=== PATIENT | male | born 1960 | race Caucasian/White ===

== ENCOUNTER 2019-04-29 10:54 | Emergency (ER) | payer BC ==
[2019-04-29] MEDS ORDERED: Diphtheria,Pertussis(Acell),Tetanus Vaccine 0.5 ML SDV IM ONE (11:44)
--- NOTE | 2019-04-29 11:49 | EDM.PDOC ---
ED HPI GENERAL MEDICAL PROBLEM - General Chief Complaint: Laceration Stated Complaint: FISH HOOK Time Seen by Provider: 04/29/19 11:40 Source of Information: Reports: Patient History Limitations: Reports: No Limitations - History of Present Illness INITIAL COMMENTS - FREE TEXT/NARRATIVE: Two ends of treble hook in left hand, patient was fishing, caught a walleye, walleye fell off of hook and hook entered patient's hand. Uncertain last DT. No other injuries. Onset: Today, Sudden - Related Data Allergies Allergy/AdvReac Type Severity Reaction Status Date / Time codeine Allergy Vomiting Verified 04/29/19 11:32 Penicillins Allergy Rash Verified 04/29/19 11:32 Home Meds: Home Meds Lisinopril 04/29/19 [History] atorvaSTATin [Lipitor] 04/29/19 [History] Past Medical History - Past Health History Medical/Surgical History: Denies Medical/Surgical History Social & Family History - Tobacco Use Smoking Status *Q: Never Smoker ED ROS GENERAL - Review of Systems Review Of Systems: ROS reveals no pertinent complaints other than HPI. ED EXAM, SKIN/RASH Exam: See Below Exam Limited By: No Limitations General Appearance: Alert, WD/WN, No Apparent Distress Respiratory/Chest: No Respiratory Distress Cardiovascular: Regular Rate, Rhythm Back Exam: Normal Inspection Extremities: Normal Inspection Neurological: Alert, Oriented, CN II-XII Intact Psychiatric: Normal Affect, Normal Mood Skin: Warm, Dry, Other (two hooks from treble hook in left hand along web space between first and second digit) Lymphatic: No Adenopathy Course - Vital Signs Last Recorded V/S: Last Vital Signs Temp 36.8 C 04/29/19 11:43 Pulse 60 04/29/19 11:43 Resp 20 04/29/19 11:43 BP 165/99 H 04/29/19 11:43 Pulse Ox 98 04/29/19 11:43 Quinton is a 58 year old male, hx of HTN and high cholesterol, presents to the ED today with fish hook to left hand. Patient anesthetized with 1% lidocaine, 5 ml , both hooks pushed through and removed intact. Patient washed hand well after removal. DT updated. Wound care discussed. Patient discharged in stable condition. - Orders/Labs/Meds Orders: Active Orders 24 hr Category Date Time Status Vaccines to be Administered [RC] PER UNIT ROUTINE Care 04/29/19 11:44 Ordered Meds: Medications Discontinued Medications Generic Name Dose Route Start Last Admin Trade Name Brad PRN Reason Stop Dose Admin Diphtheria/Tetanus/Acell Pertussis 0.5 ml 04/29/19 11:44 Adacel IM 04/29/19 11:45 .ONCE ONE Lidocaine HCl 5 ml 04/29/19 11:10 Xylocaine-Mpf 1% INJECT 04/29/19 11:11 ONETIME ONE Departure - Departure Time of Disposition: 12:00 Disposition: Home, Self-Care 01 Condition: Good Clinical Impression: Removal of foreign body - Discharge Information Instructions: Puncture Wound, [id number] Referrals: PCP,None [Primary Care Provider] - - My Orders Last 24 Hours: My Active Orders 04/29/19 11:44 Vaccines to be Administered [RC] PER UNIT ROUTINE - Assessment/Plan Last 24 Hours: My Active Orders 04/29/19 11:44 Vaccines to be Administered [RC] PER UNIT ROUTINE
== END 2019-04-29 12:02 | disposition home or self-care (01) ==
LOC: JP.ED 10:54
DX: S60.552A Superficial foreign body of left hand, initial encounter (principal); Z23 Encounter for immunization; Z88.5 Allergy status to narcotic agent; Z88.0 Allergy status to penicillin; Z79.899 Other long term (current) drug therapy; W45.8XXA Other foreign body or object entering through skin, initial encounter
CPT/HCPCS: 90471; 90715; 99283; J2001